=== PATIENT | female | born 1995 | race African-American/Black ===

== ENCOUNTER 2023-02-09 02:11 | Emergency (ER) | payer OTHER ==
[~2023-02-09] VITALS: Ht 177.8 cm; Wt 114.1 kg
[2023-02-09] MEDS ORDERED: PERTUSS(ACELL),DIPH,TET VAC/PF 0.5 ML SYRINGE IM. ONE (02:45)
[2023-02-09 03:01] VITALS: BP 130/80
== END 2023-02-09 03:18 | disposition short-term general hospital (02) ==
LOC: EMS 02:13
DX: O26.892 Other specified pregnancy related conditions, second trimester (principal); S61.411A Laceration without foreign body of right hand, initial encounter; O99.332 Smoking (tobacco) complicating pregnancy, second trimester; Z98.890 Other specified postprocedural states; Z3A.19 19 weeks gestation of pregnancy; W25.XXXA Contact with sharp glass, initial encounter; Y93.89 Activity, other specified; Y92.89 Other specified places as the place of occurrence of the external cause; Y99.8 Other external cause status
CPT/HCPCS: 90471; 90715; 99285